=== PATIENT | female | born 1960 | race Caucasian/White ===

== ENCOUNTER → 2017-07-16 15:23 | Outpatient (CLI) | payer BC, SELFPAY ==
--- NOTE | 2017-07-16 15:32 | XR_ITS ---
XR shoulder LT min 2V HISTORY: ITS.REASON: LEFT SHOULDER PAIN ORDERING PHYSICIAN: Wiliam Hernandez PATIENT AGE: 57 years COMPARISON: None FINDINGS: No fracture or dislocation. No lytic or blastic change. There is normal mineralization. The joint spaces are well-preserved. No significant degenerative/arthritic changes. No erosive changes evident. IMPRESSION: Negative, no acute finding
== END ==
PROVIDERS: PCP Internal Medicine; Visit Provider Internal Medicine
DX: M25.512 Pain in left shoulder (principal)
CPT/HCPCS: 73030

== ENCOUNTER → 2018-01-28 10:21 | Outpatient (CLI) | payer BC, SELFPAY ==
--- NOTE | 2018-01-28 10:25 | XR_ITS ---
XR chest 2V HISTORY: Follow-up pneumonia ITS.REASON: FU PNEUMONIA ORDERING PHYSICIAN: Wiliam Hernandez PATIENT AGE: 57 years COMPARISON: 01/09/2018 FINDINGS: The cardiomediastinal silhouette and pulmonary vascularity are within normal limits. The lungs are clear without infiltrates, suspicious nodules, or pleural effusions. Right lower lobe infiltrate has improved No acute bony abnormalities. IMPRESSION: Resolved right lower lobe pneumonia. No acute finding
== END ==
PROVIDERS: PCP Internal Medicine; Visit Provider Internal Medicine
DX: J18.9 Pneumonia, unspecified organism (principal)
CPT/HCPCS: 71046

== ENCOUNTER → 2018-02-05 11:28 | Outpatient (CLI) | payer BC, SELFPAY ==
[2018-02-05 12:49] VITALS: PULSE 86; PULSE 87
== END ==
PROVIDERS: Family Provider Internal Medicine; PCP Internal Medicine; Visit Provider Internal Medicine
DX: R06.02 Shortness of breath (principal); Z87.891 Personal history of nicotine dependence
CPT/HCPCS: 94060; 94640

== ENCOUNTER → 2018-09-26 13:26 | Outpatient (CLI) | payer BC, SELFPAY ==
--- NOTE | 2018-09-26 13:31 | CA_ITS ---
PROCEDURE: 2-D M-mode and color Doppler study INDICATIONS FOR THE TEST: Chest pain COPD Heart Murmur Tobacco Smoking Palpitations Fatigue Syncope Edema HypertensionXDiabetes Mellitus Rheumatic Fever SOB DOEXObesityXHyperlipidemia Family History HD Additional History PATIENT INFORMATION HEIGHT: 66 WEIGHT:214 GENDER: Female B/P:140/78 2-D/M-MODE INTERPRETATION: 2-D MEASUREMENTS OBSERVED VALUES IN CMS Right Ventricular Dimension (RVDd) 1.6 Interventricular Septum (Thickness)(IVsd) 1.0 Left Ventricular Internal Dimensions(LVIDd) 4.8 Left Ventricular Posterior Wall (Thickness)(LVPWd) .9 Aortic Root 2.6 Aortic Cusp Separation 1.4 Left Atrial Dimensions (LAD) 2.7 2D 1. Left atrium is mildly enlarged, left ventricle is normal size, mild concentric left ventricular hypertrophy, visually estimated ejection fraction 55% with no regional wall motion abnormality. 2. The right atrium and right ventricle are mildly enlarged with normal contractility. 3. The aortic valve is minimally thickened and fibrosed. 4. The mitral and tricuspid valvular grossly normal. 5. The pulmonic valve is visualized. 6. No significant pericardial effusion noted. DOPPLER INTERROGATION: Doppler interrogation of the aortic, mitral and tricuspid valvular presence of mild mitral and tricuspid regurgitation, tricuspid regurgitation jet velocity is inadequate for calculation of the right ventricular systolic pressure, grade 1 diastolic dysfunction seen with tissue Doppler evidence of raised left atrial pressure. CONCLUSION: 1. Mildly enlarged left atrium, normal left ventricular size, mild concentric left ventricular hypertrophy, visually estimated ejection fraction 55% with no regional wall motion abnormality, grade 1 diastolic dysfunction seen with tissue Doppler evidence of raised left atrial pressure. 2. Trace aortic, mild mitral and tricuspid regurgitation. 3. No significant pericardial effusion noted.
== END ==
PROVIDERS: PCP Internal Medicine; Visit Provider Nurse Practitioner Family
DX: R06.02 Shortness of breath (principal)
CPT/HCPCS: 93306; 94618

== ENCOUNTER → 2018-10-09 13:11 | Outpatient (CLI) | payer BC, SELFPAY | PROVIDERS: PCP Internal Medicine; Visit Provider Internal Medicine | DX: G47.33 Obstructive sleep apnea (adult) (pediatric) (principal); I10 Essential (primary) hypertension; R40.0 Somnolence; R06.83 Snoring; R53.83 Other fatigue | CPT/HCPCS: G0399 ==

== ENCOUNTER → 2019-02-23 11:28 | Outpatient (CLI) | payer BC, SELFPAY ==
--- NOTE | 2019-02-23 11:33 | XR_ITS ---
PROCEDURE: XR ANKLE LT MIN 3V CLINICAL INDICATION: LT ANKLE PAIN Medial left ankle pain COMPARISON: ANKL3 ANKLE-LT-3 VIEWS from 02/06/2017 FINDINGS: No fracture, dislocation, lytic change, or blastic change evident. No significant degenerative change. There is some minimal cortical regularity involving the tip of the lateral malleolus. This is of questionable clinical significance and is unchanged from 02/06/2017 IMPRESSION: No acute findings. Dictated by: Augustine Canas MD 02/23/2019 11:59 Electronically signed by Augustine Canas MD in [facility] 02/23/2019 11:59
== END ==
PROVIDERS: PCP Internal Medicine; Visit Provider Internal Medicine
DX: M25.572 Pain in left ankle and joints of left foot (principal)
CPT/HCPCS: 73610

== ENCOUNTER → 2019-04-07 09:05 | Outpatient (CLI) | payer BC, SELFPAY ==
--- NOTE | 2019-04-07 09:11 | XR_ITS ---
PROCEDURE: XR ANKLE WT BEARING LT MIN 3V CLINICAL INDICATION: ankle and foot pain COMPARISON: ANKL3 ANKLE-LT-3 VIEWS from 02/06/2017 FINDINGS: No fracture, dislocation, lytic change, or blastic change evident. No significant degenerative change. IMPRESSION: Negative left ankle Dictated by: Augustine Canas MD 04/07/2019 15:11 Electronically signed by Augustine Canas MD in [facility] 04/07/2019 15:11
--- NOTE | 2019-04-07 09:11 | XR_ITS ---
PROCEDURE: XR FOOT WT BEARING LT 3V CLINICAL INDICATION: foot and ankle pain Left foot and ankle pain with a palpable knot COMPARISON: No exams were available for comparison FINDINGS: No fracture or dislocation. No lytic or blastic change. There is normal mineralization. The joint spaces are well-preserved. No significant degenerative/arthritic changes. No erosive changes evident. Other findings:Small well-circumscribed calcific density is present at the medial aspect of the 1st MTP joint nonspecific. IMPRESSION: No acute findings. Dictated by: Augustine Canas MD 04/07/2019 15:10 Electronically signed by Augustine Canas MD in [facility] 04/07/2019 15:10
--- NOTE | 2019-04-07 09:26 | XR_ITS ---
PROCEDURE: XR ANKLE WT BEARING RT MIN 3V CLINICAL INDICATION: comparison views COMPARISON: ANKL3 ANKLE-LT-3 VIEWS from 02/06/2017 XR ANKLE LT MIN 3V from 02/23/2019 FINDINGS: No fracture, dislocation, lytic change, or blastic change evident. No significant degenerative change IMPRESSION: No acute findings. Dictated by: Augustine Canas MD 04/07/2019 15:20 Electronically signed by Augustine Canas MD in [facility] 04/07/2019 15:20
--- NOTE | 2019-04-07 09:26 | XR_ITS ---
PROCEDURE: XR FOOT WT BEARING RT 3V CLINICAL INDICATION: comparison views COMPARISON: XR FOOT WT BEARING LT 3V from 04/07/2019 FINDINGS: No fracture or dislocation. No lytic or blastic change. There is normal mineralization. Minimal osteoarthritic changes 1st metatarsophalangeal joint Other findings:None. IMPRESSION: No acute findings. Dictated by: Augustine Canas MD 04/07/2019 15:21 Electronically signed by Augustine Canas MD in [facility] 04/07/2019 15:21
== END ==
PROVIDERS: PCP Internal Medicine; Visit Provider Podiatrist
DX: M25.572 Pain in left ankle and joints of left foot (principal); M79.672 Pain in left foot; M25.571 Pain in right ankle and joints of right foot; M79.671 Pain in right foot
CPT/HCPCS: 73610; 73630

== ENCOUNTER → 2019-06-24 12:33 | Outpatient (CLI) | payer BC, SELFPAY ==
--- NOTE | 2019-06-24 12:35 | US_ITS ---
APPROVED REPORT Exam Type: Ankle to Brachial Index Research Physiologist: RT Louise(R) Indications Claudication: Rest Pain: History of Smoking Risk Factors Hypertension Pressures/Indices Right Indices Left Indices Brachial 164.00 mmHg Brachial 177.00 mmHg Low Thigh 201.00 mmHg 1.14 Low Thigh 205.00 mmHg 1.16 Calf 230.00 mmHg 1.30 Calf 209.00 mmHg 1.18 Ankle(PT) 209.00 mmHg 1.18 Ankle(PT) 207.00 mmHg 1.17 Ankle(DP) 157.00 mmHg 0.89 Ankle(DP) 212.00 mmHg 1.20 Digit 129.00 mmHg 0.73 Digit 138.00 mmHg 0.78 Findings RT SHARI=1.2 LT SHARI-1.2 RT TBI=0.7 LT TBI=0.8 Normal pulses Normal waveforms Conclusion Normal appearing resting noninvasive lower extremity arterial study. Electronically signed by : Augustine Canas MD 06/24/2019 18:14:51
== END ==
PROVIDERS: PCP Internal Medicine; Visit Provider Podiatrist
DX: R09.89 Other specified symptoms and signs involving the circulatory and respiratory systems (principal)
CPT/HCPCS: 93923

== ENCOUNTER → 2019-07-20 09:50 | Outpatient (CLI) | payer BC, SELFPAY ==
[2019-07-20 10:19] LABS: Blood Urea Nitrogen 10 mg/dl (7-17); Estimated Glomerular Filt Rate 64 ml/min (>60); GFR (African American) 77 ML/MIN (>60)
--- NOTE | 2019-07-20 10:19 | CT_ITS ---
Procedure: CT ANGIO LE BI CLINICAL HISTORY: abnormal monica Left foot and ankle pain, cool to touch COMPARISON: US ARTERIAL LOWER EXT REST from 06/24/2019 TECHNIQUE: IV Contrast: 100ml Optiray 350 Axial images obtained with sagittal and coronal reformats. All CT scans at the facility use one or more dose reduction, viz: automated exposure control, ma/kV adjustment per patient size (including targeted exams where dose is matched to indication, i.e. head), or iterative reconstruction technique. FINDINGS: CT angiography: Unremarkable aorta with some scattered calcific plaque of the aortoiliac vessels no significant stenosis or aneurysm. The celiac and SMA have an unremarkable appearance. The DELFINA is patent. There are 2 renal arteries on both sides.. Bilateral lower extremity runoff: No significant stenotic lesions evident. There is 3 vessel runoff to the ankle on both sides. IMPRESSION: Unremarkable CT angiogram of the abdominal aorta with bilateral lower extremity runoff Dictated by: Augustine Canas MD 07/21/2019 10:57 Electronically signed by Augustine Canas MD in [facility] 07/21/2019 10:57
== END ==
PROVIDERS: PCP Internal Medicine; Visit Provider Physician Assistant
DX: M79.605 Pain in left leg (principal); R68.89 Other general symptoms and signs; R93.6 Abnormal findings on diagnostic imaging of limbs; Z87.891 Personal history of nicotine dependence
CPT/HCPCS: 36415; 73701; 82565; 84520; Q9967

== ENCOUNTER → 2019-11-23 10:19 | Outpatient (CLI) | payer BC, SELFPAY ==
[2019-11-23 10:47] LABS: Basophils # 0.1 K/mm3 (0-0.2); Basophils % 0.9 % (0.1-2.0); Eosinophils # 0.4 K/mm3 (0.0-0.4); Eosinophils % 6.2 % (0.1-12.0); Lymphocytes # 2.6 K/mm3 (0.7-4.5); Lymphocytes % 43.6 % (10-50); Mean Corpuscular HGB Conc 34.8 g/dL (31.8-35.4); Mean Corpuscular Hemoglobin 32.8 pg (27.0-31.2); Mean Corpuscular Volume 94.3 fl (81-99); Mean Platelet Volume 7.2 fl (7.4-10.4); Monocytes # 0.2 K/mm3 (0.1-1.0); Monocytes % 3.2 % (1.7-9.3); Neutrophils # 2.7 K/mm3 (1.8-7.8); Neutrophils % 46.1 % (37.0-80.0); Platelet Count 195 K/mm3 (142-424); Red Blood Count 4.88 M/mm3 (4.20-5.40); Red Cell Distribution Width 14.4 % (11.5-17.5); White Blood Count 5.9 K/mm3 (4.8-10.8)
[2019-11-23 11:42] LABS: Chloride 105 mmol/L (98-107); Sodium 139 mmol/L (136-145)
[2019-11-23 11:45] LABS: Alanine Aminotransferase 34 U/L (12-78); Albumin Level 4.3 g/dl (3.5-5.0); Albumin/Globulin Ratio 1.6 (1.1-1.8); Alkaline Phosphatase 95 U/L (38-126); Aspartate Amino Transferase 42 U/L (14-36); Bilirubin,Total 0.6 mg/dl (0.2-1.3); Blood Urea Nitrogen 13 mg/dl (7-17); Carbon Dioxide 26 mmol/L (22.0-30.0); Cholesterol 248 mg/dl (140-200); Estimated Glomerular Filt Rate 64 ml/min (>60); GFR (African American) 77 ML/MIN (>60); Globulin 2.7 g/dL (1.3-3.2); Triglycerides 144 mg/dl (30-150); VLDL Cholesterol 29 mg/dL (0-40)
[2019-11-23 11:46] LABS: Calcium 9.3 mg/dl (8.4-10.2); Glucose 91 mg/dl (74-100); HDL Cholesterol 62 mg/dl (40-60)
[2019-11-23 11:56] LABS: Direct LDL Cholesterol 132.21 mg/dL (100-129)
[2019-11-23 12:16] LABS: Thyroid Stimulating Hormone 3.34 uIU/mL (0.465-4.68)
== END ==
PROVIDERS: Visit Provider Internal Medicine
DX: R19.7 Diarrhea, unspecified (principal); E78.5 Hyperlipidemia, unspecified; R53.83 Other fatigue; J44.9 Chronic obstructive pulmonary disease, unspecified; I10 Essential (primary) hypertension; R73.01 Impaired fasting glucose; Z85.820 Personal history of malignant melanoma of skin
CPT/HCPCS: 36415; 80053; 80061; 84436; 84443; 85025

== ENCOUNTER → 2019-11-24 09:44 | Outpatient (CLI) | payer BC, SELFPAY ==
[2019-11-24 09:47] LABS: Adenovirus F 40/41, stool Not Detected (NotDetected); Astrovirus Not Detected (NotDetected); Campylobacter Not Detected (NotDetected); Clostridium Difficile A/B, PCR Not Detected (NotDetected); Cryptosporidium Not Detected (NotDetected); Cyclospora Cayetanesis Not Detected (NotDetected); Entamoeba histolytica Not Detected (NotDetected); Enteroaggregative E coli Not Detected (NotDetected); Enteropathogenic E coli Not Detected (NotDetected); Enterotoxigenic E coli Not Detected (NotDetected); Giardia lamblia Not Detected (NotDetected); Norovirus Not Detected (NotDetected); Plesimonas Shigalloides, PCR Not Detected (NotDetected); Rotavirus A Not Detected (NotDetected); Salmonella, PCR Not Detected (NotDetected); Sapovirus Not Detected (NotDetected); Shiga-like toxin E coli Not Detected (NotDetected); Shigella Enterovasive E coli Not Detected (NotDetected); Vibrio Cholerae Not Detected (NotDetected); Vibrio, PCR Not Detected (NotDetected); Yersinia Entercolitica, PCR Not Detected (NotDetected)
== END ==
PROVIDERS: Visit Provider Internal Medicine
DX: R19.7 Diarrhea, unspecified (principal); E78.5 Hyperlipidemia, unspecified; R53.83 Other fatigue; R73.01 Impaired fasting glucose; I10 Essential (primary) hypertension; J44.9 Chronic obstructive pulmonary disease, unspecified; Z85.820 Personal history of malignant melanoma of skin
CPT/HCPCS: 87507

== ENCOUNTER → 2021-06-09 11:03 | Outpatient (CLI) | payer BC, SELFPAY ==
--- NOTE | 2021-06-09 11:09 | XR_ITS ---
FINAL REPORT CLINICAL HISTORY: . copd, right side chest pain FINDINGS: Two views of the chest were obtained. The heart size and pulmonary vascularity are within normal limits. The mediastinum is normal. No acute pulmonary abnormality is identified. There is no pneumothorax. The bony thorax is intact. IMPRESSION: No active cardiopulmonary disease. Reviewed, Interpreted and Dictated by Zander Aguirre III, MD Transcribed by Bishop Haynes Authenticated by Zander Aguirre III, MD on 06/09/2021 12:47:33 PM [facility]
--- NOTE | 2021-06-09 14:55 | CT_ITS ---
PROCEDURE INFORMATION: Exam: CTA Chest With Contrast Exam date and time: 06/09/2021 2:55 PM Age: 61 years old Clinical indication: Shortness of breath; Additional info: Chest pain, SOA TECHNIQUE: Imaging protocol: Computed tomographic angiography of the chest with contrast. 3D rendering (Not supervised by radiologist): MIP and/or 3D reconstructed images were created by the technologist. Radiation optimization: All CT scans at this facility use at least one of these dose optimization techniques: automated exposure control; mA and/or kV adjustment per patient size (includes targeted exams where dose is matched to clinical indication); or iterative reconstruction. Contrast material: ISOVUE 370; Contrast volume: 70 ml; Contrast route: INTRAVENOUS (IV); COMPARISON: CR XR CHEST 2V 06/09/2021 11:18 AM FINDINGS: Pulmonary arteries: No pulmonary emboli. Aorta: No aortic aneurysm. No aortic dissection. Lungs: No consolidation. Irregularly marginated right upper lobe nodule estimated at 8 mm. Small zone of scarring or fibrosis in the lateral right midlung. Pleural spaces: Unremarkable. No pneumothorax. No pleural effusion. Heart: No cardiomegaly. No pericardial effusion. Lymph nodes: No significant adenopathy. Bones/joints: No acute findings. Soft tissues: Unremarkable. IMPRESSION: No acute findings. 8 mm right upper lobe nodule. For patients at low risk (minimal or absent history of smoking and of other known risk factors), recommend CT Chest at 6-12 months, then consider CT Chest at 18-24 months. For patients at high risk (history of smoking or of other known risk factors), recommend CT Chest at 6-12 months, then CT Chest at 18-24 months. (Reference: Carmen) References: Carmen Arellano et al. Guidelines for Management of Incidental Pulmonary Nodules Detected on CT Images: From the Fleischner Society 2017. Radiology. 2017;284(1):228-243.
[2021-06-09 15:05] LABS: Blood Urea Nitrogen 16 mg/dl (7-17); Estimated Glomerular Filt Rate 72 ml/min (>60); GFR (African American) 88 ML/MIN (>60)
[2021-06-09 18:47] LABS: Alanine Aminotransferase 35 U/L (12-78); Albumin Level 4.8 g/dl (3.5-5.0); Albumin/Globulin Ratio 1.7 (1.1-1.8); Alkaline Phosphatase 91 U/L (38-126); Amylase 70 U/L (30-110); Anion Gap 11.1 mEq/L (5-15); Aspartate Amino Transferase 45 U/L (14-36); Bilirubin,Total 0.5 mg/dl (0.2-1.3); Calcium 9.8 mg/dl (8.4-10.2); Carbon Dioxide 28 mmol/L (22.0-30.0); Chloride 104 mmol/L (98-107); Globulin 2.8 g/dL (1.3-3.2); Glucose 93 mg/dl (74-100); Potassium 4.1 mmoL/L (3.5-5.1); Sodium 139 mmol/L (136-145); Total Protein,Serum 7.6 g/dl (6.3-8.2)
== END ==
PROVIDERS: PCP Internal Medicine; Visit Provider Internal Medicine
DX: R06.02 Shortness of breath (principal); R07.9 Chest pain, unspecified
CPT/HCPCS: 36415; 71046; 71275; 80053; 82150; 82565; 84520; Q9967

== ENCOUNTER → 2021-06-14 07:34 | Outpatient (CLI) | payer BC, SELFPAY ==
--- NOTE | 2021-06-14 07:38 | US_ITS ---
FINAL REPORT CLINICAL HISTORY: RUQ PAIN,ABD PAIN FINDINGS: Sonographic images of the abdomen were obtained. The liver has an unremarkable appearance with normal echogenicity. The gallbladder surgically absent. There is no evidence of biliary ductal dilatation. The common hepatic duct measures 3 mm, which is within normal limits. Limited images of the pancreas are unremarkable. The spleen size is normal. The right kidney measures 10.6 cm in length. The left kidney measures 10.6 cm in length. There is normal renal echogenicity. There is no evidence of hydronephrosis. The aorta has an unremarkable appearance. IMPRESSION: Unremarkable abdominal ultrasound with no acute abnormality identified. Reviewed, Interpreted and Dictated by Zander Aguirre III, MD Transcribed by Tasia Martin Authenticated by Zander Aguirre III, MD on 06/14/2021 09:18:[address] [facility]
== END ==
PROVIDERS: PCP Internal Medicine; Visit Provider Internal Medicine
DX: R10.11 Right upper quadrant pain (principal)
CPT/HCPCS: 76700

== ENCOUNTER → 2021-07-14 12:35 | Outpatient (CLI) | payer BC, SELFPAY ==
--- NOTE | 2021-07-14 12:40 | CT_ITS ---
FINAL REPORT TECHNIQUE: Axial CT images of the abdomen were obtained without contrast. Coronal reformatted images were also obtained.This study was performed with techniques to keep radiation doses as low as reasonably achievable (ALARA). Individualized dose reduction techniques using automated exposure control or adjustment of mA and/or kV according to the patient's size were employed. CLINICAL HISTORY: EPIGASTRIC PAIN for months FINDINGS: There is mild atelectasis or scarring in the lung bases. The liver has an unremarkable appearance, without evidence of mass. There are postoperative changes from cholecystectomy. There is no evidence of biliary ductal dilatation. The pancreas appears normal. The spleen size is within normal limits. There is no evidence of renal stone or hydronephrosis. There is no evidence of adenopathy. No abnormal fluid collection is seen. No localized inflammatory processes identified. There is a small umbilical hernia containing fat. The appendix is partially visualized with portions seen is normal. IMPRESSION: No acute intra-abdominal process. Reviewed, Interpreted and Dictated by Zander Aguirre III, MD Transcribed by Tasia Martin Authenticated by Zander Aguirre III, MD on 07/14/2021 02:12:00 PM [facility]
== END ==
PROVIDERS: PCP Internal Medicine; Visit Provider Internal Medicine
DX: R10.13 Epigastric pain (principal)
CPT/HCPCS: 74150

== ENCOUNTER → 2021-07-29 11:02 | Outpatient (CLI) | payer BC, SELFPAY | PROVIDERS: Visit Provider Surgery | DX: Z01.812 Encounter for preprocedural laboratory examination (principal); Z11.52 Encounter for screening for COVID-19; Z13.810 Encounter for screening for upper gastrointestinal disorder | CPT/HCPCS: C9803; U0003; U0005 ==

== ENCOUNTER 2021-08-01 09:50 | Day surgery (SDC) | payer BC, SELFPAY ==
[2021-08-01 10:26] VITALS: BP 197/105; PULSE 79; RESP 16; TEMP 36.2; O2SAT 97; BMI 34.2
--- NOTE | 2021-08-01 10:36 | P.PN_ITS ---
[facility] Anesthesia Checklist - Structural Data Admitted From: Home Planned Operative Procedure/s: egd Consent for Planned Operative Procedure(s) Verified: Yes - Airway Assessment C-Spine Mobility Assessed: Yes TMJ Mobility Assessed: Yes Dentition: Poor Dentition - Neurological Assessment Level of Consciousness: Awake, Alert, Appropriate - Anesthesia Plan Anesthesia Risk discussed: Yes Anesthesia Plan: Verified ASA Class: III Anesthesia Type: MAC [facility] History I have reviewed the patient's past medical history: Yes Medical History: Reports:: Anxiety, Asthma, Cancer (skin), Chronic Obstructive Pulmonary Disease (COPD), Depression, Diabetes Mellitus Type 2, Gastroesophageal Reflux Disease(GERD), Hyperlipidemia, Hypertension, Migraine Denies:: Diabetes Mellitus Type 1, Internal Pacemaker, MRSA, Seizures *Have you ever received a pneumonia vaccine?: No *Have you received a flu vaccine this season?: No Other Medical History: Reports: Glaucoma Anesthesia experience/problems:: none Other Surgeries: Yes: Cholecystectomy, Colonoscopy, Skin Cancer Excision, Other. No: Pacemaker Amputation: No Fractures: No - *Social History Last grade of school completed: High school graduate Smoking Status: Never smoker Alcohol Intake: never Substance Use Type: denies use *Occupational Status:: unemployed Housing: house Household Members: spouse *Travel in the last 8 weeks: None - Psychiatric History Pschychiatric History:: Reports:: Anxiety, Depression Family Hx:: Cancer
[2021-08-01 11:03] VITALS: O2SAT 96
--- NOTE | 2021-08-01 11:12 | [facility].SCOPE ---
- Procedure: Date: 08/01/21 Patient Date of :: 1960 Procedure Performed:: Esophagogastroduodenoscopy with biopsy Indications:: Epigastric pain Gastroesophageal reflux Performing Provider:: Tuan Min MD Referring Provider:: Dr. Hernandez Sedation:: Monitored anesthesia care Procedure:: After informed consent was obtained the patient was taken to the endoscopy suite. Sedation ensued after the patient was transferred to the left lateral decubitus position. Pulse, blood pressure, and oxygen saturation were monitored throughout the procedure. The endoscope was advanced beyond the duodenal bulb. Retroflexion within the gastric lumen was accomplished. The gastroscope was carefully removed and the patient was transferred to recovery in stable condition. Please see findings and specimens below for detail. Findings:: Gastroesophageal junction at 38 cm Small sliding hiatal hernia Patchy inflammation at gastroesophageal junction Moderate gastritis distally Mild to moderate bilious reflux Specimens:: Antral biopsy Recommendations:: Proton pump inhibition Consider cholestyramine for bilious reflux if symptoms persist Possible gastroenterology consultation if symptoms persist Complications:: No immediate Estimated blood obtained (mL): 1
[2021-08-01 11:15] VITALS: BP 149/78; PULSE 77; RESP 18; O2SAT 97
[2021-08-01 11:25] VITALS: BP 165/84; PULSE 76; RESP 18; O2SAT 95
[2021-08-01 11:35] VITALS: BP 146/76; PULSE 71; RESP 18; O2SAT 95
[2021-08-01 11:55] VITALS: BP 152/81; PULSE 79; RESP 18; O2SAT 94
[2022-01-25 10:58] LABS: POC Glucose,Bedside 94 (70-110)
== END 2021-08-01 12:02 | disposition hospice, home (50) ==
LOC: OUTP 09:50
PROVIDERS: PCP Internal Medicine; Visit Provider Surgery
PROC: 0DJ08ZZ Inspection of Upper Intestinal Tract, Via Natural or Artificial Opening Endoscopic (ICD-10-PCS; CPT 43235; principal; 2021-08-01 11:00)
DX: K21.9 Gastro-esophageal reflux disease without esophagitis (principal); K29.60 Other gastritis without bleeding; K44.9 Diaphragmatic hernia without obstruction or gangrene; K22.89 Other specified disease of esophagus; F41.9 Anxiety disorder, unspecified; J45.909 Unspecified asthma, uncomplicated; J44.9 Chronic obstructive pulmonary disease, unspecified; F32.A Depression, unspecified; E11.9 Type 2 diabetes mellitus without complications; E78.5 Hyperlipidemia, unspecified; I10 Essential (primary) hypertension; G43.909 Migraine, unspecified, not intractable, without status migrainosus; Z85.828 Personal history of other malignant neoplasm of skin
CPT/HCPCS: 43239; 82962

== ENCOUNTER → 2022-09-28 16:58 | Outpatient (CLI) | payer BC, SELFPAY ==
[2022-09-28 19:09] LABS: Alanine Aminotransferase 24 U/L (12-78); Albumin Level 4.5 g/dl (3.5-5.0); Albumin/Globulin Ratio 1.9 (1.1-1.8); Alkaline Phosphatase 94 U/L (38-126); Anion Gap 14.9 mEq/L (5-15); Aspartate Amino Transferase 32 U/L (14-36); Bilirubin,Total 0.6 mg/dl (0.2-1.3); Blood Urea Nitrogen 15 mg/dl (7-17); Calcium 9.3 mg/dl (8.4-10.2); Carbon Dioxide 26 mmol/L (22.0-30.0); Chloride 102 mmol/L (98-107); Cholesterol 238 mg/dl (140-200); Estimated Glomerular Filt Rate 63 ml/min (>60); GFR (African American) 76 ML/MIN (>60); Globulin 2.4 g/dL (1.3-3.2); Glucose 81 mg/dl (74-100); HDL Cholesterol 59 mg/dl (40-60); Potassium 3.9 mmoL/L (3.5-5.1); Sodium 139 mmol/L (136-145); Total Protein,Serum 6.9 g/dl (6.3-8.2); Triglycerides 201 mg/dl (30-150); VLDL Cholesterol 40 mg/dL (0-40)
[2022-09-28 19:12] LABS: Basophils % 0.5 % (0.1-2.0); Eosinophils # 0.4 K/mm3 (0.0-0.4); Eosinophils % 5.1 % (0.1-12.0); Hematocrit 45.6 % (37.0-47.0); Hemoglobin 15.3 g/dL (12.2-16.2); Lymphocytes # 3.3 K/mm3 (0.7-4.5); Lymphocytes % 46.1 % (10-50); Mean Corpuscular HGB Conc 33.5 g/dL (31.8-35.4); Mean Corpuscular Hemoglobin 31.5 pg (27.0-31.2); Mean Corpuscular Volume 93.9 fl (81-99); Mean Platelet Volume 8.3 fl (7.4-10.4); Monocytes # 0.4 K/mm3 (0.1-1.0); Monocytes % 5.4 % (1.7-9.3); Neutrophils # 3.1 K/mm3 (1.8-7.8); Neutrophils % 42.9 % (37.0-80.0); Platelet Count 236 K/mm3 (142-424); Red Blood Count 4.85 M/mm3 (4.20-5.40); Red Cell Distribution Width 14.6 % (11.5-17.5); White Blood Count 7.1 K/mm3 (4.8-10.8)
[2022-09-28 19:20] LABS: Direct LDL Cholesterol 119.57 mg/dL (100-129)
[2022-09-28 19:39] LABS: Thyroid Stimulating Hormone 3.26 uIU/mL (0.465-4.68)
== END ==
PROVIDERS: PCP Internal Medicine; Visit Provider Internal Medicine
DX: R53.82 Chronic fatigue, unspecified (principal); I10 Essential (primary) hypertension; R73.01 Impaired fasting glucose; E78.5 Hyperlipidemia, unspecified; J44.9 Chronic obstructive pulmonary disease, unspecified
CPT/HCPCS: 80053; 80061; 84443; 85025

== ENCOUNTER → 2022-11-06 12:53 | Outpatient (CLI) | payer BC, SELFPAY | PROVIDERS: PCP Internal Medicine; Visit Provider Nurse Practitioner Family | DX: G47.33 Obstructive sleep apnea (adult) (pediatric) (principal); G47.00 Insomnia, unspecified; R06.83 Snoring; R53.83 Other fatigue | CPT/HCPCS: G0399 ==

== ENCOUNTER 2023-12-17 14:39 | Outpatient (CLI) | payer MEDICARE, SELFPAY ==
[2023-12-17 14:22] LABS: Basophils % 0.7 % (0.1-2.0); Eosinophils # 0.4 K/mm3 (0.0-0.4); Eosinophils % 6.6 % (0.1-12.0); Hematocrit 45.4 % (37.0-47.0); Hemoglobin 14.9 g/dL (12.2-16.2); Lymphocytes % 47.7 % (10-50); Mean Corpuscular HGB Conc 32.9 g/dL (31.8-35.4); Mean Corpuscular Hemoglobin 32.4 pg (27.0-31.2); Mean Corpuscular Volume 98.3 fl (81-99); Mean Platelet Volume 8.1 fl (7.4-10.4); Monocytes # 0.3 K/mm3 (0.1-1.0); Monocytes % 4.8 % (1.7-9.3); Neutrophils # 2.5 K/mm3 (1.8-7.8); Neutrophils % 40.1 % (37.0-80.0); Platelet Count 211 K/mm3 (142-424); Red Blood Count 4.62 M/mm3 (4.20-5.40); Red Cell Distribution Width 15.1 % (11.5-17.5); White Blood Count 6.2 K/mm3 (4.8-10.8)
[2023-12-17 14:53] LABS: Alanine Aminotransferase 28 U/L (12-78); Albumin Level 4.2 g/dl (3.5-5.0); Albumin/Globulin Ratio 1.6 (1.1-1.8); Alkaline Phosphatase 73 U/L (38-126); Aspartate Amino Transferase 33 U/L (14-36); Bilirubin,Total 0.4 mg/dl (0.2-1.3); Blood Urea Nitrogen 16 mg/dl (7-17); Calcium 9.6 mg/dl (8.4-10.2); Carbon Dioxide 26 mmol/L (22.0-30.0); Chloride 104 mmol/L (98-107); Chol/HDL Ratio 3.1 (1-3.5); Cholesterol 169 mg/dl (140-200); Estimated Glomerular Filt Rate 63 ml/min (>60); GFR (African American) 76 ML/MIN (>60); Globulin 2.7 g/dL (1.3-3.2); Glucose 88 mg/dl (74-100); HDL Cholesterol 54 mg/dl (40-60); Sodium 139 mmol/L (136-145); Total Protein,Serum 6.9 g/dl (6.3-8.2); Triglycerides 234 mg/dl (30-150); VLDL Cholesterol 47 mg/dL (0-40)
[2023-12-17 15:04] LABS: Direct LDL Cholesterol 62.43 mg/dL (100-129)
[2023-12-17 15:10] LABS: Erythrocyte Sedimentation Rate 12 mm/hr (0-30)
== END 2023-12-17 23:59 | disposition home or self-care (01) ==
LOC: LAB.DROPOF 14:40
PROVIDERS: PCP Internal Medicine; Visit Provider Internal Medicine
DX: E78.5 Hyperlipidemia, unspecified (principal); R51.9 Headache, unspecified; I10 Essential (primary) hypertension; Z87.891 Personal history of nicotine dependence
CPT/HCPCS: 80053; 80061; 85025; 85651

== ENCOUNTER 2024-08-10 12:20 | Outpatient (CLI) | payer MEDICARE, OTHER, SELFPAY ==
[2024-08-10 13:33] LABS: Basophils # 0.1 K/mm3 (0-0.2); Basophils % 1.1 % (0.1-2.0); Eosinophils # 0.4 K/mm3 (0.0-0.4); Eosinophils % 7.1 % (0.1-12.0); Hematocrit 45.1 % (37.0-47.0); Lymphocytes # 2.4 K/mm3 (0.7-4.5); Lymphocytes % 42.8 % (10-50); Mean Corpuscular HGB Conc 33.3 g/dL (31.8-35.4); Mean Corpuscular Hemoglobin 30.5 pg (27.0-31.2); Mean Corpuscular Volume 91.9 fl (81-99); Mean Platelet Volume 9.7 fl (7.4-10.4); Monocytes # 0.4 K/mm3 (0.1-1.0); Monocytes % 6.5 % (1.7-9.3); Neutrophils # 2.4 K/mm3 (1.8-7.8); Neutrophils % 42.3 % (37.0-80.0); Nucleated Red Blood Cells # 0 10^3/uL; Nucleated Red Blood Cells % 0 %; Platelet Count 211 K/mm3 (142-424); Red Blood Count 4.91 M/mm3 (4.20-5.40); Red Cell Distribution Width 13.8 % (11.5-17.5); Red Cell Distribution Width-SD 46.5 fL; White Blood Count 5.7 K/mm3 (4.8-10.8)
[2024-08-10 14:26] LABS: Alanine Aminotransferase 29 U/L (12-78); Albumin Level 4.7 g/dl (3.5-5.0); Albumin/Globulin Ratio 1.6 (1.1-1.8); Alkaline Phosphatase 113 U/L (38-126); Aspartate Amino Transferase 33 U/L (14-36); Bilirubin,Total 0.7 mg/dl (0.2-1.3); Blood Urea Nitrogen 10 mg/dl (7-17); Calcium 9.5 mg/dl (8.4-10.2); Carbon Dioxide 30 mmol/L (22.0-30.0); Chloride 100 mmol/L (98-107); Chol/HDL Ratio 2.9 (1-3.5); Cholesterol 188 mg/dl (140-200); Estimated Glomerular Filt Rate 63 ml/min (>60); GFR (African American) 76 ML/MIN (>60); Globulin 2.9 g/dL (1.3-3.2); Glucose 85 mg/dl (74-100); HDL Cholesterol 64 mg/dl (40-60); Sodium 136 mmol/L (136-145); Total Protein,Serum 7.6 g/dl (6.3-8.2); Triglycerides 159 mg/dl (30-150); VLDL Cholesterol 32 mg/dL (0-40)
[2024-08-10 14:37] LABS: Direct LDL Cholesterol 72.65 mg/dL (100-129)
== END 2024-08-10 23:59 | disposition home or self-care (01) ==
LOC: LAB.DROPOF 08-11 14:48
PROVIDERS: PCP Internal Medicine; Visit Provider Internal Medicine
DX: E78.5 Hyperlipidemia, unspecified (principal); I10 Essential (primary) hypertension; Z86.73 Personal history of transient ischemic attack (TIA), and cerebral infarction without residual deficits
CPT/HCPCS: 80053; 80061; 85025